=== PATIENT | male | born 1990 | race Hispanic/Latino ===

== ENCOUNTER 2025-02-25 09:05 | Emergency (ER) | payer SELFPAY ==
[2025-02-25 10:04] LABS: #Basophils 0.1 thou/uL (0.0-0.2); #Eosinophils 0.1 thou/uL (0.0-0.7); #Lymphocytes 1.0 thou/uL (1.20-3.40); #Monocytes 0.4 thou/uL (0.11-0.59); #Neutrophils 7.6 thou/uL (1.40-6.50); %Basophils 0.7 % (0.0-1.0); %Eosinophils 1.3 % (0.0-10.0); %Lymphocytes 10.6 % (21.0-51.0); %Monocytes 4.3 % (0.0-10.0); %Neutrophils 83.1 % (42.0-75.0); Hematocrit 38.7 % (42.0-52.0); Hemoglobin 13.4 g/dL (14.0-18.0); Mean Corpuscular Hemoglobin 29.2 pg (27.0-31.0); Mean Corpuscular Volume 84.5 fl (78.0-98.0); Platelet Count 246 10x3/uL (130-400); Red Blood Cell (RBC) Count 4.58 mill/uL (4.70-6.10); White Blood Cell (WBC) Count 9.1 10x3/uL (4.8-10.8)
[2025-02-25 10:20] LABS: ALT (SGPT) 34 U/L (Less than 45); AST (SGOT) 20 U/L (11-34); Albumin 3.7 g/dL (3.1-4.5); Alkaline Phosphatase 84 U/L (40-110); Anion Gap 13 mmol/L (10-20); BUN (Urea Nitrogen) 20 mg/dL (8.9-20.6); Bilirubin, Total 0.6 mg/dL (0.3-1.2); Calc. Creatinine Clearance 0 mL/min (70-130); Calcium 8.4 mg/dL (7.8-10.44); Carbon Dioxide 24 mmol/L (22-29); Chloride 97 mmol/L (98-107); Globulin 2.7 g/dL (2.4-3.5); Lipase 74 U/L (8-78); Magnesium 2.0 mg/dL (1.6-2.6); Potassium 5.3 mmol/L (3.5-5.1); Sodium 129 mmol/L (136-145)
[2025-02-25 10:23] LABS: Glucose 533 mg/dL (70-105)
[2025-02-25 10:35] LABS: Bicarbonate (HCO3v) 26.4 mmol/L (22.0-28.0); CO2 Tension (PvCO2) 59.4 mmHg (42.0-51.0); Hemoglobin - Calc 13.0 g/dL (14.0-18.0); Sodium 130 mmol/L (138-145); vO2 Saturation-calc 89.6 % (60.0-85.0)
[2025-02-25 10:36] LABS: Calcium, Ionized 1.19 mmol/L (1.15-1.33); Chloride 99 mmol/L (98-107); Potassium 5.4 mmol/L (3.5-5.1); T. Carbon Dioxide 28.2 mmol/L (22.0-28.0)
[2025-02-25 11:18] LABS: Glucose, Urine (Dipstick) >=1000 mg/dL (Negative); Leukocyte Negative (Negative); Protein, Urine (Dipstick) 100 mg/dL (Neg-Trace); Specific Gravity, Urine 1.010 (1.005-1.030)
[2025-02-25 11:25] LABS: Bacteria/HPF Rare-Few HPF (None Seen); CAUTI Indications for Culture Alt mental st,lethar; RBC/HPF 0-3 HPF (0-3); Urine Culture Reflex No No; WBC/HPF None Seen HPF (0-3); Yeast-Budding Rare HPF (None Seen)
[2025-02-25 13:39] LABS: Anion Gap 12 mmol/L (10-20); BUN (Urea Nitrogen) 15 mg/dL (8.9-20.6); Calc. Creatinine Clearance 0 mL/min (70-130); Calcium 8.0 mg/dL (7.8-10.44); Carbon Dioxide 24 mmol/L (22-29); Chloride 107 mmol/L (98-107); Glucose 238 mg/dL (70-105); Potassium 4.6 mmol/L (3.5-5.1); Sodium 138 mmol/L (136-145)
[2025-02-25 13:45] LABS: Bicarbonate (HCO3v) 27.1 mmol/L (22.0-28.0); CO2 Tension (PvCO2) 60.0 mmHg (42.0-51.0); Calcium, Ionized 1.25 mmol/L (1.15-1.33); Chloride 104 mmol/L (98-107); Hemoglobin - Calc 11.3 g/dL (14.0-18.0); Potassium 4.6 mmol/L (3.5-5.1); Sodium 139 mmol/L (138-145); T. Carbon Dioxide 28.9 mmol/L (22.0-28.0); vO2 Saturation-calc 96.8 % (60.0-85.0)
== END 2025-02-25 14:50 | disposition home or self-care (01) ==
LOC: MADERS 09:05
DX: E11.65 Type 2 diabetes mellitus with hyperglycemia (principal); Z79.84 Long term (current) use of oral hypoglycemic drugs; Z79.899 Other long term (current) drug therapy
CPT/HCPCS: 36416; 80053; 81001; 82010; 82330; 82435; 82803; 83605; 83690; 83735; 84100; 84132; 84295; 85014; 85025; 93005; 94760; 96361; 96374; 36415-59; J1815; J7030